=== PATIENT | male | born 1965 | race Caucasian/White ===

== ENCOUNTER 2016-05-19 16:19 | Outpatient (CLI) | payer OTHER | END 2016-05-19 16:20 | LOC: LAB 16:19 | PROVIDERS: ATTEND Urology | DX: C61 Malignant neoplasm of prostate (principal) | CPT/HCPCS: 36415; 84153 ==

== ENCOUNTER 2017-02-06 09:08 | Outpatient (CLI) | payer OTHER ==
[2017-02-06 09:53] LABS: eGFR (African) > 60; eGFR (Non-African) > 60
== END 2017-02-06 09:10 ==
LOC: LAB 09:08
PROVIDERS: ATTEND Physician Assistant
DX: R97.20 Elevated prostate specific antigen [PSA] (principal); I10 Essential (primary) hypertension; E78.00 Pure hypercholesterolemia, unspecified; Z79.899 Other long term (current) drug therapy
CPT/HCPCS: 36415; 80053; 80061; G0103